=== PATIENT | female | born 1990 ===

== ENCOUNTER 2022-09-23 16:00 | Day surgery (SDC) | payer OTHER ==
[~2022-09-23] VITALS: Ht 167.6 cm; Wt 95.3 kg
== END 2022-09-23 21:05 | disposition home or self-care (01) ==
LOC: CIR.AMB 16:00
PROVIDERS: ATTEND Obstetrics & Gynecology Obstetrics
DX: N93.9 Abnormal uterine and vaginal bleeding, unspecified (principal); N88.8 Other specified noninflammatory disorders of cervix uteri; N72 Inflammatory disease of cervix uteri